=== PATIENT | male | born 1950 | race Caucasian/White ===

== ENCOUNTER → 2017-04-29 | Outpatient (CLI) | payer MEDICARE, BC ==
[~2017-04-29] MED LIST: ASPRIN; BACTRIM DS 8001 TA1 PO; Bactrim Ds 8001 TAB PO; CIPROFLOXACIN500 MG PO; HYDROCO/APAP TAB 5-3; HYDROCODONE BIT1 T11 PO; HYTRIN5 M1 PO; MOTRIN800 MG PO; MULTIPLE VITAMI1 CAP PO; PYRIDIUM200 M1 PO; PYRIDIUM200 MG PO; SEPTRA DS1 TAB PO; SIMVASTATIN40 MG PO; TERAZOSIN HCL5 M1 PO; TERAZOSIN HCL5 MG PO; ZOCOR20 MG PO; ZOCOR40 MG PO
[2017-04-29 10:28] LABS: BASO % 0.4 % (0.0-1.0); EOS # 0.1 10*3/uL (0.0-0.4); HEMATOCRIT 43.1 % (42.0-52.0); HEMOGLOBIN 14.6 g/dl (14.0-18.0); LYMPH # 1.4 10*3/uL (1.3-4.4); LYMPH % 19.7 % (27.0-41.0); MEAN CELL VOLUME 91.5 fl (80.0-94.0); MEAN CORPUSCULAR HGB CONC 33.9 g/dl (33.0-37.0); MONO # 0.7 10*3/uL (0.1-1.0); MONO % 9.8 % (3.0-9.0); NEUT # 4.8 10*3/uL (2.3-7.9); NEUT % 68.8 % (47.0-73.0); PLATELET COUNT AUTOMATED 183 10*3/uL (130-400); RED BLOOD COUNT 4.71 10*6/uL (4.50-5.90); RED CELL DISTRI WIDTH 13.2 % (0-14.5)
== END | disposition home or self-care (01) ==
LOC: LAB 09:55
PROVIDERS: Internal Medicine Interventional Cardiology
DX: I25.10 Atherosclerotic heart disease of native coronary artery without angina pectoris (principal); I10 Essential (primary) hypertension; I25.2 Old myocardial infarction; Z95.5 Presence of coronary angioplasty implant and graft; Z86.74 Personal history of sudden cardiac arrest

== ENCOUNTER 2017-11-29 19:05 | Emergency (ER) | payer MEDICARE, BC ==
[~2017-11-29] VITALS: Ht 177.8 cm; Wt 90.7 kg
--- NOTE | ~2017-11-29 | EKG ---
[place], [place] ELECTROCARDIOGRAM REPORT NAME: ESTHER NAM UNIT #: [id number] ROOM: DOCTOR: DARON CARLSON MD BIRTHDATE: [birth year] DOS: 11/29/2017 TIME: hours. IMPRESSION: 1. Normal sinus rhythm at 92 beats per minute with a couple of premature ventricular contractions. 2. Nonspecific T-wave changes in lateral leads. 3. No previous tracing is available for comparison. DARON CARLSON MD CM:EKGRPT:ELECTROCARDIOGRAM REPORT [id number] 1210 DARON CARLSON MD
[2017-11-29 20:38] LABS: BASO % 0.2 % (0.0-1.0); EOS # 0.1 10*3/uL (0.0-0.4); EOS % 0.3 % (1.0-4.0); HEMATOCRIT 40.3 % (42.0-52.0); HEMOGLOBIN 13.8 g/dl (14.0-18.0); LYMPH # 1.1 10*3/uL (1.3-4.4); LYMPH % 5.3 % (27.0-41.0); MEAN CELL VOLUME 90.2 fl (80.0-94.0); MEAN CORPUSCULAR HGB 30.9 pg (27.0-31.0); MEAN CORPUSCULAR HGB CONC 34.2 g/dl (33.0-37.0); MEAN PLATELET VOLUME 9.9 fl (9.6-12.3); MONO # 1.1 10*3/uL (0.1-1.0); MONO % 5.4 % (3.0-9.0); NEUT # 18.2 10*3/uL (2.3-7.9); NEUT % 88.1 % (47.0-73.0); PLATELET COUNT AUTOMATED 154 10*3/uL (130-400); RED BLOOD COUNT 4.47 10*6/uL (4.50-5.90); RED CELL DISTRI WIDTH 13.4 % (0-14.5); WHITE BLOOD COUNT 20.7 10*3/uL (4.8-10.8)
[2017-11-29 20:56] LABS: ALBUMIN 3.5 gm/dl (3.1-4.5); ALKALINE PHOSPHATASE 77 U/L (45-117); BUN 14 mg/dl (7-24); CHLORIDE 100 mmol/L (98-107); CREATININE 1.19 mg/dL (0.70-1.30); POTASSIUM 3.8 mmol/L (3.5-5.1); SGOT/AST 17 IU/L (3-35); SGPT/ALT 28 U/L (12-78); SODIUM 138 mmol/L (136-145); TOTAL PROTEIN 6.5 gm/dL (6.4-8.2)
[2017-11-29 20:57] LABS: TROPONIN I < 0.015 ng/ml (<0.045)
[2017-11-29 21:40] VITALS: BP 119/70
[2017-11-29 22:55] LABS: BILIRUBIN NEGATIVE (NEGATIVE); BLOOD NEGATIVE (NEGATIVE); CLARITY CLEAR (CLEAR); COLOR YELLOW (YELLOW); GLUCOSE NEGATIVE (NEGATIVE); KETONE NEGATIVE (NEGATIVE); LEUKO ESTERASE NEGATIVE (NEGATIVE); NITRITE NEGATIVE (NEGATIVE); UROBILINOGEN 0.2 E.U./dl (0.2-1.0)
[2017-11-29 23:04] LABS: BACTERIA TRACE; MUCOUS 1+
[2017-11-29] MEDS ORDERED: OMNICEF300 MG PO (23:15)
[2017-11-29] MEDS ORDERED: FLOMAX0.4 MG PO (23:15)
== END 2017-11-29 23:58 | disposition home or self-care (01) ==
LOC: ED 19:05
PROVIDERS: Family Medicine
DX: R50.9 Fever, unspecified (principal); K30 Functional dyspepsia; I49.01 Ventricular fibrillation

== ENCOUNTER → 2018-09-08 | Day surgery (SDC) | payer MEDICARE, BC ==
[~2018-09-08] VITALS: Ht 180.3 cm; Wt 88.5 kg
[~2018-09-08] MED LIST changes: +ASPIRIN ADULT L81 M1 PO; +BRAIN MIGHT-DH1 EACH PO; +EMERGEN-C 500500 MG PO; +FLOMAX0.4 MG PO; +HYDR25T PO; +LIPITOR40 MG PO; +METOPROLOL25 MG PO; +OMEPRAZOLE40 MG PO; +OMNICEF300 MG PO; +SYMB80 PO; +[UNRECOGNIZED DRUG - OTHER] PO
--- NOTE | ~2018-09-08 | O ---
[place], [place] OPERATIVE NOTE NAME: ESTHER NAM UNIT #: [id number] ROOM: DOCTOR: DIPESH AVILA MD BIRTHDATE: [birth year] DOS: 09/08/2018 HISTORY OF PRESENT ILLNESS: This is a 68-year-old patient who presented with history of colonic carcinoma in 2010, undergoing followup evaluation. ALLERGIES: No known medication. PAST MEDICAL HISTORY: Hypertension, hyperlipidemia, coronary artery disease, status post one stent, COPD. PAST SURGICAL HISTORY: Segmental resection of the right colon, total bilateral hip and cataracts. SOCIAL HISTORY: Nonsmoker, nonalcohol consumer. FAMILY HISTORY: Noncontributory. PROCEDURE: Today's procedure part of investigation is colonoscopy. PREMEDICATION: Propofol. SCOPE: Olympus Highlight colonoscope 10L video. REPORT: After putting the patient in left lateral position and application of lubricant to the scope, the scope was introduced; thereafter, under direct visualization, advanced through the length of colon without difficulty. As we approached the right hemicolon, there is status post anastomotic site and previous resection, which appears to be fresh and no evidence of suture infiltration. No evidence of ulceration, no pathology otherwise identified. As I approached the splenic flexure and distal transverse colon, multiple diverticula were identified. Photographed. Air was suctioned out. The patient was gradually extubated, tolerated the procedure well. IMPRESSION PLAN: Status post partial right colon resection with a history of colonic carcinoma in 2010. No chemo, no radiation history otherwise normal colon. Otherwise, diverticulosis. Thank you very much indeed for your kind referral. [place], [place] OPERATIVE NOTE NAME: ESTHER NAM UNIT #: [id number] ROOM: DOCTOR: DIPESH AVILA MD BIRTHDATE: [birth year] DIPESH AVILA MD CM:OPRECORD:OPERATIVE NOTE 1145 1215 DIPESH AVILA MD 09/08/18 1216 interface
[2018-09-08 10:09] VITALS: BP 131/97
[2018-09-08 11:37] VITALS: BP 117/46
[2018-09-08 11:53] VITALS: BP 113/61
[2018-09-08 12:07] VITALS: BP 123/60
== END | disposition home or self-care (01) ==
LOC: SDC 09-05 11:00
DX: Z12.11 Encounter for screening for malignant neoplasm of colon (principal); K57.30 Diverticulosis of large intestine without perforation or abscess without bleeding; I10 Essential (primary) hypertension; I25.2 Old myocardial infarction; I25.10 Atherosclerotic heart disease of native coronary artery without angina pectoris; E78.5 Hyperlipidemia, unspecified; J44.9 Chronic obstructive pulmonary disease, unspecified; K21.9 Gastro-esophageal reflux disease without esophagitis; M19.90 Unspecified osteoarthritis, unspecified site; Z85.038 Personal history of other malignant neoplasm of large intestine; Z98.0 Intestinal bypass and anastomosis status; Z87.891 Personal history of nicotine dependence; Z96.643 Presence of artificial hip joint, bilateral; Z98.890 Other specified postprocedural states; Z79.899 Other long term (current) drug therapy; Z87.11 Personal history of peptic ulcer disease; Z98.42 Cataract extraction status, left eye; Z98.41 Cataract extraction status, right eye
CPT/HCPCS: 00812; G0105

== ENCOUNTER → 2019-04-30 | Outpatient (CLI) | payer MEDICARE, BC | END | disposition home or self-care (01) | LOC: RAD 10:39 | DX: M25.572 Pain in left ankle and joints of left foot (principal) ==

== ENCOUNTER → 2019-09-27 | Outpatient (CLI) | payer MEDICARE, BC ==
[2019-09-27 09:45] LABS: BASO % 0.6 % (0.0-1.0); EOS # 0.1 10*3/uL (0.0-0.4); EOS % 1.9 % (1.0-4.0); HEMATOCRIT 40.5 % (42.0-52.0); HEMOGLOBIN 13.4 g/dl (14.0-18.0); LYMPH # 1.5 10*3/uL (1.3-4.4); LYMPH % 24.6 % (27.0-41.0); MEAN CORPUSCULAR HGB 31.1 pg (27.0-31.0); MEAN CORPUSCULAR HGB CONC 33.1 g/dl (33.0-37.0); MEAN PLATELET VOLUME 10.1 fl (9.6-12.3); MONO # 0.6 10*3/uL (0.1-1.0); MONO % 9.2 % (3.0-9.0); NEUT # 3.9 10*3/uL (2.3-7.9); NEUT % 63.2 % (47.0-73.0); PLATELET COUNT AUTOMATED 197 10*3/uL (130-400); RED BLOOD COUNT 4.31 10*6/uL (4.50-5.90); RED CELL DISTRI WIDTH 13.9 % (0-14.5); WHITE BLOOD COUNT 6.2 10*3/uL (4.8-10.8)
[2019-09-27 10:13] LABS: BUN 15 mg/dl (7-24); CHLORIDE 101 mmol/L (98-107); CREATININE 1.19 mg/dL (0.70-1.30); POTASSIUM 3.6 mmol/L (3.5-5.1); SODIUM 138 mmol/L (136-145); URIC ACID 4.6 mg/dL (3.5-7.2)
== END | disposition home or self-care (01) ==
LOC: LAB 08:52
PROVIDERS: Internal Medicine
DX: M10.9 Gout, unspecified (principal)

== ENCOUNTER → 2019-10-30 | Outpatient (CLI) | payer MEDICARE, BC | END | disposition home or self-care (01) | LOC: RAD 11:01 | DX: R06.02 Shortness of breath (principal); R05 Cough ==

== ENCOUNTER → 2020-07-03 | Outpatient (CLI) | payer MEDICARE, BC | END | disposition home or self-care (01) | LOC: RAD 11:29 | PROVIDERS: ATTEND Internal Medicine | DX: R05 Cough (principal) ==

== ENCOUNTER → 2020-07-10 | Outpatient (CLI) | payer MEDICARE, BC | END | disposition home or self-care (01) | LOC: CARD 12:33 | PROVIDERS: ATTEND Internal Medicine | DX: I35.1 Nonrheumatic aortic (valve) insufficiency (principal); I35.8 Other nonrheumatic aortic valve disorders; I05.8 Other rheumatic mitral valve diseases ==

== ENCOUNTER 2020-09-04 16:22 | Inpatient (IN) | payer MEDICARE, BC ==
[~2020-09-04] VITALS: Ht 177.8 cm; Wt 90.0 kg
[2020-09-04 10:35] VITALS: BP 127/61
[2020-09-04 16:22] VITALS: BP 146/74
[2020-09-04 17:11] LABS: BASO % 0.1 % (0.0-1.0); EOS % 0.1 % (1.0-4.0); HEMATOCRIT 36.3 % (42.0-52.0); LYMPH # 0.5 10*3/uL (1.3-4.4); LYMPH % 6.4 % (27.0-41.0); MEAN CELL VOLUME 89.2 fl (80.0-94.0); MEAN CORPUSCULAR HGB 29.5 pg (27.0-31.0); MEAN CORPUSCULAR HGB CONC 33.1 g/dl (33.0-37.0); MEAN PLATELET VOLUME 9.2 fl (9.6-12.3); MONO # 0.7 10*3/uL (0.1-1.0); MONO % 8.5 % (3.0-9.0); NEUT # 6.9 10*3/uL (2.3-7.9); NEUT % 84.3 % (47.0-73.0); PLATELET COUNT AUTOMATED 278 10*3/uL (130-400); RED BLOOD COUNT 4.07 10*6/uL (4.50-5.90); RED CELL DISTRI WIDTH 12.9 % (0-14.5); WHITE BLOOD COUNT 8.2 10*3/uL (4.8-10.8)
[2020-09-04 17:24] LABS: ACT PARTIAL THROMBO TIME 28.8 SECONDS (20.0-32.1)
[2020-09-04 17:29] LABS: ALBUMIN 2.6 gm/dl (3.1-4.5); ALKALINE PHOSPHATASE 233 U/L (45-117); BUN 15 mg/dl (7-24); CHLORIDE 101 mmol/L (98-107); CPK 45 U/L (39-308); LDH 284 U/L (87-241); POTASSIUM 3.3 mmol/L (3.5-5.1); SGOT/AST 158 IU/L (3-35); SGPT/ALT 271 U/L (12-78); SODIUM 139 mmol/L (136-145)
[2020-09-04 17:35] LABS: TROPONIN I < 0.015 ng/ml (<0.045)
[2020-09-04 20:00] VITALS: BP 133/78
--- NOTE | 2020-09-04 20:05 | NUR ---
SPOKE WITH THE PATIENTS DAUGHTER AND EXPLAINED THE PATIENT WOULD BE STAYING IN THE ER TONIGHT I DID EXPLAIN I WOULD PLACE HIM IN A HOSPITAL BED FOR COMFORT SHE WAS WORRIED ABOUT HIS BEING UNCOMFORTABLE. ADALBERTO CARRENO RN.
[2020-09-04 23:56] VITALS: BP 129/62
--- NOTE | 2020-09-05 06:30 | NUR ---
PT AWAKE ALERT SITTING AT BEDSIDE STATES HAS HEADACHE ASKING FOR TYLENOL. PT MEDICATED WTIH 650 MG OF TYLENOL. ADALBERTO CARRENO RN.
[2020-09-05 06:45] VITALS: BP 144/84
--- NOTE | 2020-09-05 07:05 | NUR ---
NURSE REPORT RECEIVEDE FOR CONTINUATION OF CARE. NO VOICED COMPLAINTS. NO CHANGE IN CONDITION. VITALS STABLE.
[2020-09-05 07:33] LABS: BASO % 0.2 % (0.0-1.0); EOS # 0.1 10*3/uL (0.0-0.4); EOS % 0.9 % (1.0-4.0); HEMATOCRIT 37.5 % (42.0-52.0); LYMPH # 0.6 10*3/uL (1.3-4.4); LYMPH % 6.8 % (27.0-41.0); MEAN CELL VOLUME 92.1 fl (80.0-94.0); MEAN CORPUSCULAR HGB 29.7 pg (27.0-31.0); MEAN CORPUSCULAR HGB CONC 32.3 g/dl (33.0-37.0); MEAN PLATELET VOLUME 9.4 fl (9.6-12.3); MONO # 0.6 10*3/uL (0.1-1.0); MONO % 6.6 % (3.0-9.0); NEUT # 7.7 10*3/uL (2.3-7.9); NEUT % 84.7 % (47.0-73.0); PLATELET COUNT AUTOMATED 281 10*3/uL (130-400); RED BLOOD COUNT 4.07 10*6/uL (4.50-5.90); RED CELL DISTRI WIDTH 13.2 % (0-14.5); WHITE BLOOD COUNT 9.1 10*3/uL (4.8-10.8)
[2020-09-05 07:44] LABS: ALBUMIN 2.6 gm/dl (3.1-4.5); BUN 17 mg/dl (7-24); CHLORIDE 100 mmol/L (98-107); CREATININE 1.06 mg/dL (0.70-1.30); LDH 254 U/L (87-241); POTASSIUM 3.7 mmol/L (3.5-5.1); SGOT/AST 95 IU/L (3-35); SGPT/ALT 222 U/L (12-78); SODIUM 138 mmol/L (136-145); TOTAL PROTEIN 6.9 gm/dL (6.4-8.2)
[2020-09-05 07:45] LABS: ALKALINE PHOSPHATASE 218 U/L (45-117); CPK 44 U/L (39-308)
[2020-09-05 07:57] VITALS: BP 136/77
--- NOTE | 2020-09-05 10:02 | NUR ---
[employer] CALLED ABOUT NO FOOD TRAY DELIVERY YET. PT PROVIDED BOXED LUNCH, JUICE AND MILK
[2020-09-05 10:29] LABS: ARTERIAL BLOOD GAS PH 7.463 (7.35-7.45)
--- NOTE | 2020-09-05 10:30 | NUR ---
CALL PLACED TO DR. BUSTAMANTE NOTIFIED OF CONSULT.
[2020-09-05] MEDS ORDERED: LASIX40 MG PO (11:10)
[2020-09-05] MEDS ORDERED: ALLOPURINOL300 MG PO (11:13)
[2020-09-05 13:30] VITALS: BP 122/67
--- NOTE | 2020-09-05 13:34 | NUR ---
MEAL TRAY FOR LUNCH PROVIDED, PT DENIES ANY OTGHER NEEDS AT THIS TIME. VITALS STABLE. DINNER TRAY ORDERED. SITTING UP WATCHING TV.
--- NOTE | 2020-09-05 13:45 | NUR ---
MULTIPLE JUICES, BREWSTER, CUPS AND MYRA DENISE'S PROVIDED PER REQUEST.
--- NOTE | 2020-09-05 14:50 | NUR ---
Pt arrived to floor from ER. Place in [facility] isolation.
[2020-09-05 16:00] VITALS: BP 150/52
[2020-09-05 20:00] VITALS: BP 136/69
[2020-09-06] VITALS: BP 151/71
[2020-09-06 06:37] LABS: BASO % 0.2 % (0.0-1.0); EOS % 0.1 % (1.0-4.0); HEMATOCRIT 37.4 % (42.0-52.0); LYMPH # 0.8 10*3/uL (1.3-4.4); LYMPH % 9.6 % (27.0-41.0); MEAN CELL VOLUME 90.6 fl (80.0-94.0); MEAN CORPUSCULAR HGB 29.3 pg (27.0-31.0); MEAN CORPUSCULAR HGB CONC 32.4 g/dl (33.0-37.0); MEAN PLATELET VOLUME 9.4 fl (9.6-12.3); MONO # 0.5 10*3/uL (0.1-1.0); NEUT # 7.1 10*3/uL (2.3-7.9); NEUT % 83.7 % (47.0-73.0); PLATELET COUNT AUTOMATED 344 10*3/uL (130-400); RED BLOOD COUNT 4.13 10*6/uL (4.50-5.90); RED CELL DISTRI WIDTH 12.9 % (0-14.5); WHITE BLOOD COUNT 8.5 10*3/uL (4.8-10.8)
[2020-09-06 06:58] LABS: ALBUMIN 2.6 gm/dl (3.1-4.5); BUN 15 mg/dl (7-24); CHLORIDE 101 mmol/L (98-107); CREATININE 0.88 mg/dL (0.70-1.30); LDH 224 U/L (87-241); POTASSIUM 3.8 mmol/L (3.5-5.1); SGOT/AST 77 IU/L (3-35); SGPT/ALT 206 U/L (12-78); SODIUM 138 mmol/L (136-145); TOTAL PROTEIN 6.8 gm/dL (6.4-8.2)
[2020-09-06 06:59] LABS: ALKALINE PHOSPHATASE 200 U/L (45-117); CPK 45 U/L (39-308)
[2020-09-06 08:00] VITALS: BP 145/60
[2020-09-06 09:24] LABS: ABG BASE EXCESS 5.1 mmol/L (-2.0-2.0); ARTERIAL BLOOD GAS PH 7.495 (7.35-7.45)
[2020-09-06 12:00] VITALS: BP 136/92
[2020-09-06 16:00] VITALS: BP 127/88
[2020-09-06 20:00] VITALS: BP 142/63
--- NOTE | 2020-09-06 21:11 | NUR ---
ASSUMED CARE OF PATIENT. PATIENT IS AAOX3 RESTING IN BED WITH EASY AND REGULAR RESPERS ON 2L O2 VIA NC. ASSESSMENT IS COMPLETE WITH NO C/O OR S/S OF DISTRESS NOTED AT THIS TIME. BED IS LOW, LOCKED, AND CALL LIGHT IS WITHIN REACH. WILL CONTINUE TO MONITOR, SEE INTERVENTIONS.
[2020-09-07] VITALS: BP 134/71
--- NOTE | 2020-09-07 02:58 | NUR ---
CHART CHECK COMPLETE.
[2020-09-07 06:38] LABS: BASO % 0.1 % (0.0-1.0); HEMATOCRIT 36.4 % (42.0-52.0); LYMPH # 0.9 10*3/uL (1.3-4.4); LYMPH % 10.1 % (27.0-41.0); MEAN CELL VOLUME 90.1 fl (80.0-94.0); MEAN CORPUSCULAR HGB 29.7 pg (27.0-31.0); MEAN PLATELET VOLUME 9.4 fl (9.6-12.3); MONO # 0.5 10*3/uL (0.1-1.0); MONO % 6.1 % (3.0-9.0); NEUT % 82.9 % (47.0-73.0); PLATELET COUNT AUTOMATED 357 10*3/uL (130-400); RED BLOOD COUNT 4.04 10*6/uL (4.50-5.90); RED CELL DISTRI WIDTH 12.8 % (0-14.5); WHITE BLOOD COUNT 8.5 10*3/uL (4.8-10.8)
[2020-09-07 07:00] LABS: ALBUMIN 2.7 gm/dl (3.1-4.5); ALKALINE PHOSPHATASE 174 U/L (45-117); BUN 17 mg/dl (7-24); CHLORIDE 104 mmol/L (98-107); CPK 36 U/L (39-308); LDH 203 U/L (87-241); POTASSIUM 3.7 mmol/L (3.5-5.1); SGOT/AST 65 IU/L (3-35); SGPT/ALT 197 U/L (12-78); SODIUM 140 mmol/L (136-145); TOTAL PROTEIN 6.7 gm/dL (6.4-8.2)
[2020-09-07 08:00] VITALS: BP 135/63
[2020-09-07 08:17] LABS: ABG BASE EXCESS 3.8 mmol/L (-2.0-2.0); ARTERIAL BLOOD GAS PH 7.476 (7.35-7.45)
--- NOTE | 2020-09-07 08:50 | NUR ---
PATIENT AWAKE, ALERT, & ORIENTED X3. PATIENT STATES THAT HE FEELS MUCH BETTER. EATING BREAKFAST AT THIS TIME. MEDICATIONS TAKEN. PT'S LUNGS DIMINISHED T/O. ON 2L NC, SOB W/ EXERTION. ABD SOFT & NONTENDER. DENIES NVD.HEPLOCK PATENT AND INTACT TO L AC. CALL LIGHT IS WITHIN REACH.
[2020-09-07 12:00] VITALS: BP 112/76
[2020-09-07 15:13] VITALS: BP 132/62
--- NOTE | 2020-09-07 19:20 | NUR ---
RECIEVED REPORT FROM PREVIOUS RN.
--- NOTE | 2020-09-07 19:22 | NUR ---
CHART CHECK COMPLETE.
[2020-09-07 20:00] VITALS: BP 129/85
--- NOTE | 2020-09-07 20:59 | NUR ---
ASSUMED CARE OF PATIENT. PATIENT IS AAOX3 RESTING IN BED WITH EASY AND REGULAR RESPERS ON 2L O2 VIA NC. ASSESSMENT IS COMPLETE WITH NO S/S OF DISTRESS NOTED AT THIS TIME. PATIENT C/O DRY MOUTH AND SORE THROAT. CALL PLACED TO DR. BAEZ, SEE NEW ORDERS. IV ABX INFUSING PER ORDER. BED IS LOW, LOCKED, AND CALL LIGHT IS WITHIN REACH. WILL CONTINUE TO MONITOR. SEE INTERVENTIONS.
[2020-09-08] VITALS: BP 122/51
--- NOTE | 2020-09-08 01:52 | NUR ---
PATIENT APPEARS TO BE SLEEPING WITH EASY AND REGULAR RESPERS ON 2L O2 VIA NC. BED IS LOW, LOCKED, AND CALL LIGHT IS WITHIN REACH. WILL CONTINUE TO MONITOR.
--- NOTE | 2020-09-08 05:00 | NUR ---
PATIENT AWAKENED EASILY FOR ADMINISTRATION OF 0600 MEDICATIONS. NO NEEDS VOICED AT THIS TIME. CALL LIGHT IS WITHIN REACH.
--- NOTE | 2020-09-08 05:19 | NUR ---
PATIENT IS AMBULATORY AROUND ROOM AT THIS TIME. GAIT STEADY. WILL CONTINUE TO MONITOR.
[2020-09-08 05:41] LABS: ALBUMIN 2.6 gm/dl (3.1-4.5); ALKALINE PHOSPHATASE 160 U/L (45-117); BUN 16 mg/dl (7-24); CHLORIDE 103 mmol/L (98-107); CPK 33 U/L (39-308); CREATININE 0.95 mg/dL (0.70-1.30); LDH 192 U/L (87-241); POTASSIUM 3.7 mmol/L (3.5-5.1); SGOT/AST 66 IU/L (3-35); SGPT/ALT 200 U/L (12-78); SODIUM 139 mmol/L (136-145); TOTAL PROTEIN 6.3 gm/dL (6.4-8.2)
[2020-09-08 06:25] LABS: BASO % 0.1 % (0.0-1.0); HEMATOCRIT 36.6 % (42.0-52.0); LYMPH % 10.3 % (27.0-41.0); MEAN CELL VOLUME 91.5 fl (80.0-94.0); MEAN CORPUSCULAR HGB 29.5 pg (27.0-31.0); MEAN CORPUSCULAR HGB CONC 32.2 g/dl (33.0-37.0); MEAN PLATELET VOLUME 9.5 fl (9.6-12.3); MONO # 0.6 10*3/uL (0.1-1.0); MONO % 6.8 % (3.0-9.0); NEUT # 7.6 10*3/uL (2.3-7.9); PLATELET COUNT AUTOMATED 354 10*3/uL (130-400); RED CELL DISTRI WIDTH 12.9 % (0-14.5); WHITE BLOOD COUNT 9.3 10*3/uL (4.8-10.8)
--- NOTE | 2020-09-08 09:00 | NUR ---
Merchandise Deliverer in to talk to patient. Patient states lives at home with . There are no steps in the home. Physician: hero Pharmacy: [facility] health services: none Patient's level of ADLs: INDEPENDENT Patient has working utilities: all working DME: [employer] Follow-up physician's appointment after d/c: will be made by hospitalist nurse director upon discharge Does patient want to access PORTAL?: no Discharge plan discussed with patient, he lives at home with , he is independent in adls and ambulation, he will return home when discharged and denies any home needs, case management will follow. KANDY SINGLETON
[2020-09-08 09:22] LABS: ABG BASE EXCESS 5.1 mmol/L (-2.0-2.0); ARTERIAL BLOOD GAS PH 7.493 (7.35-7.45)
[2020-09-08 12:00] VITALS: BP 135/69
--- NOTE | 2020-09-08 12:19 | NUR ---
PT AWAKE ALERT AND ORIENTED, NO COMPLAINTS AT THIS TIME
--- NOTE | 2020-09-08 12:39 | NUR ---
PT EVAL. FOR HOME O2. PT WAS 88% AT REST ON ROOM AIR AND DROPPED TO 85-86% DURING AMBULATION. 2L APPLIED AND MAINTAINED SATS >92%. PT JASON. WELL. RN AWARE. PT NOW AT REST POST AMBULATION ON 2L IS 96%.
[2020-09-08] MEDS ORDERED: DECADRON6 M1 PO (12:52)
[2020-09-08] MEDS ORDERED: DOXYCYCLINE100 M3 PO (12:53)
--- NOTE | 2020-09-08 13:10 | NUR ---
case management received script for home oxygen, contacted [facility], spoke to Adriana, educated her that patient is a discharge to home today and will need portable tanks delivered. Adriana stated they will deliver the portable tanks prior to discharge
--- NOTE | 2020-09-08 16:41 | NUR ---
Discharge instructions reviewed with patient/family. Patient receptive and verbalizes understanding. Follow-up care arranged. Written instructions given to patient/family. USHA HO
== END 2020-09-08 16:41 | disposition home or self-care (01) | DRG 177 ==
LOC: ED 16:22 → 4E 18:07 → EDHOLD 18:07 → 4E 09-05 14:17
PROVIDERS: Emergency Medicine; Family Medicine; Internal Medicine; Internal Medicine Critical Care Medicine; ADMIT Internal Medicine; ATTEND Internal Medicine
DX: U07.1 COVID-19 (principal); J12.89 Other viral pneumonia; J96.01 Acute respiratory failure with hypoxia; E43 Unspecified severe protein-calorie malnutrition; D68.59 Other primary thrombophilia; Z80.42 Family history of malignant neoplasm of prostate; D64.9 Anemia, unspecified; E87.6 Hypokalemia; E83.41 Hypermagnesemia; R73.9 Hyperglycemia, unspecified; E78.5 Hyperlipidemia, unspecified; R74.01 Elevation of levels of liver transaminase levels; K21.9 Gastro-esophageal reflux disease without esophagitis; N40.0 Benign prostatic hyperplasia without lower urinary tract symptoms; E87.5 Hyperkalemia; I25.10 Atherosclerotic heart disease of native coronary artery without angina pectoris; M1A.9XX0 Chronic gout, unspecified, without tophus (tophi); I10 Essential (primary) hypertension; Z96.643 Presence of artificial hip joint, bilateral; Z90.49 Acquired absence of other specified parts of digestive tract; Z83.3 Family history of diabetes mellitus; Z82.49 Family history of ischemic heart disease and other diseases of the circulatory system; Z79.82 Long term (current) use of aspirin; Z79.899 Other long term (current) drug therapy

== ENCOUNTER → 2021-04-22 | Outpatient (CLI) | payer MEDICARE, BC ==
[~2021-04-22] MED LIST changes: +ALLOPURINOL300 MG PO; +DECADRON6 M1 PO; +DOXYCYCLINE100 M3 PO; +LASIX40 MG PO
== END | disposition home or self-care (01) ==
LOC: LAB 11:03
PROVIDERS: ATTEND Internal Medicine
DX: Z12.5 Encounter for screening for malignant neoplasm of prostate (principal); D52.9 Folate deficiency anemia, unspecified; D51.9 Vitamin B12 deficiency anemia, unspecified; R70.0 Elevated erythrocyte sedimentation rate; R79.82 Elevated C-reactive protein (CRP); R74.8 Abnormal levels of other serum enzymes; R79.89 Other specified abnormal findings of blood chemistry; R53.81 Other malaise; E55.9 Vitamin D deficiency, unspecified; E03.9 Hypothyroidism, unspecified; Z13.0 Encounter for screening for diseases of the blood and blood-forming organs and certain disorders involving the immune mechanism; Z13.1 Encounter for screening for diabetes mellitus; Z13.21 Encounter for screening for nutritional disorder; Z13.220 Encounter for screening for lipoid disorders

== ENCOUNTER → 2021-08-24 | Outpatient (CLI) | payer MEDICARE, BC | END | disposition home or self-care (01) | LOC: CT 00:09 | PROVIDERS: ATTEND Internal Medicine | DX: N39.0 Urinary tract infection, site not specified (principal); R31.9 Hematuria, unspecified; R10.9 Unspecified abdominal pain; I25.10 Atherosclerotic heart disease of native coronary artery without angina pectoris; K42.9 Umbilical hernia without obstruction or gangrene; J92.9 Pleural plaque without asbestos; Z90.49 Acquired absence of other specified parts of digestive tract ==

== ENCOUNTER → 2021-10-30 | Outpatient (CLI) | payer MEDICARE, BC ==
[~2021-10-30] MED LIST changes: +SINGULAIR10 M1 PO
== END | disposition home or self-care (01) ==
LOC: CARD 04:14
PROVIDERS: ATTEND Internal Medicine Cardiovascular Disease
DX: I51.0 Cardiac septal defect, acquired (principal)

== ENCOUNTER → 2022-03-25 | Outpatient (CLI) | payer MEDICARE, BC ==
[2022-03-25 10:41] LABS: BUN 15 mg/dl (7-24); CHLORIDE 103 mmol/L (98-107); CREATININE 1.07 mg/dL (0.70-1.30); POTASSIUM 3.9 mmol/L (3.5-5.1); SODIUM 139 mmol/L (136-145)
== END | disposition home or self-care (01) ==
LOC: LAB 09:23
PROVIDERS: ATTEND Internal Medicine
DX: R79.89 Other specified abnormal findings of blood chemistry (principal); Z13.0 Encounter for screening for diseases of the blood and blood-forming organs and certain disorders involving the immune mechanism; Z13.228 Encounter for screening for other metabolic disorders; Z13.29 Encounter for screening for other suspected endocrine disorder; Z13.6 Encounter for screening for cardiovascular disorders; Z13.89 Encounter for screening for other disorder; Z13.9 Encounter for screening, unspecified

== ENCOUNTER → 2022-09-30 | Outpatient (CLI) | payer MEDICARE, BC | END | disposition short-term general hospital (02) | LOC: RAD 10:13 | PROVIDERS: ATTEND Internal Medicine | DX: J90 Pleural effusion, not elsewhere classified (principal); J61 Pneumoconiosis due to asbestos and other mineral fibers ==

== ENCOUNTER → 2022-11-24 | Outpatient (CLI) | payer MEDICARE, BC | END | disposition home or self-care (01) | LOC: CARD 02:07 | PROVIDERS: ATTEND Internal Medicine Cardiovascular Disease | DX: I35.1 Nonrheumatic aortic (valve) insufficiency (principal); I49.8 Other specified cardiac arrhythmias; R06.09 Other forms of dyspnea ==

== ENCOUNTER → 2023-11-01 | Outpatient (CLI) | payer MEDICARE, BC ==
[~2023-11-01] MED LIST changes: +Ipratropium Brom3 ML INH; +LEVOFLOXACIN500 MG PO; +WIXELA 100-501 EACH INH
== END | disposition home or self-care (01) ==
LOC: RAD 14:10
PROVIDERS: ATTEND Internal Medicine
DX: R09.02 Hypoxemia (principal)

== ENCOUNTER → 2023-11-23 | Outpatient (CLI) | payer MEDICARE, BC | END | disposition home or self-care (01) | LOC: US 01:18 | PROVIDERS: ATTEND Internal Medicine | DX: R60.9 Edema, unspecified (principal); M79.604 Pain in right leg; M79.605 Pain in left leg ==

== ENCOUNTER → 2024-06-18 | Outpatient (CLI) | payer MEDICARE, BC | END | disposition home or self-care (01) | LOC: RAD 10:04 | PROVIDERS: ATTEND Internal Medicine | DX: J90 Pleural effusion, not elsewhere classified (principal) ==

== ENCOUNTER 2024-07-30 13:33 | Emergency (ER) | payer MEDICARE, BC ==
[~2024-07-30] VITALS: Ht 177.8 cm; Wt 95.7 kg
[2024-07-30 14:05] LABS: BASO % 0.6 % (0.0-1.0); EOS # 0.2 10*3/uL (0.0-0.4); EOS % 2.3 % (1.0-4.0); HEMATOCRIT 38.5 % (42.0-52.0); LYMPH # 1.2 10*3/uL (1.3-4.4); LYMPH % 17.4 % (27.0-41.0); MEAN CELL VOLUME 94.4 fl (80.0-94.0); MEAN CORPUSCULAR HGB 31.1 pg (27.0-31.0); MONO # 0.6 10*3/uL (0.1-1.0); MONO % 8.3 % (3.0-9.0); NEUT # 4.9 10*3/uL (2.3-7.9); NEUT % 71.1 % (47.0-73.0); PLATELET COUNT AUTOMATED 178 10*3/uL (130-400); RED BLOOD COUNT 4.08 10*6/uL (4.50-5.90); RED CELL DISTRI WIDTH 13.1 % (0-14.5); WHITE BLOOD COUNT 6.8 10*3/uL (4.8-10.8)
[2024-07-30 14:23] VITALS: BP 120/93
[2024-07-30 14:24] LABS: ACT PARTIAL THROMBO TIME 26.5 SECONDS (20.0-32.1)
[2024-07-30 14:30] LABS: ALKALINE PHOSPHATASE 97 U/L (46-116); BUN 12 mg/dl (9-23); CHLORIDE 101 mmol/L (98-107); POTASSIUM 3.3 mmol/L (3.4-5.1); SGPT/ALT 16 U/L (5-49); TOTAL PROTEIN 6.5 gm/dL (6.0-8.0)
== END 2024-07-30 17:28 | disposition home or self-care (01) ==
LOC: ED 13:33
PROVIDERS: Internal Medicine
DX: R07.2 Precordial pain (principal); I10 Essential (primary) hypertension; E78.00 Pure hypercholesterolemia, unspecified; Z53.29 Procedure and treatment not carried out because of patient's decision for other reasons; Z98.890 Other specified postprocedural states

== ENCOUNTER → 2024-08-10 | Outpatient (CLI) | payer MEDICARE, BC ==
[~2024-08-10] MED LIST changes: +Albuterol Sulf/Ipratropium 3 ML VIAL NEB SCH; +Regadenoson 0.4 MG/5 ML SYR IV ONE; +Technetium Tc 99M Tetrofosmi 0.23 MG KIT IJ SCH
== END | disposition home or self-care (01) ==
LOC: CARD 01:13
PROVIDERS: ATTEND Internal Medicine
DX: R94.39 Abnormal result of other cardiovascular function study (principal); I25.10 Atherosclerotic heart disease of native coronary artery without angina pectoris; R07.2 Precordial pain

== ENCOUNTER → 2024-08-20 | Outpatient (CLI) | payer MEDICARE, BC ==
[~2024-08-20] MED LIST changes: -Albuterol Sulf/Ipratropium 3 ML VIAL NEB SCH; -Regadenoson 0.4 MG/5 ML SYR IV ONE; -Technetium Tc 99M Tetrofosmi 0.23 MG KIT IJ SCH
[2024-08-20 12:01] LABS: BASO % 0.4 % (0.0-1.0); EOS # 0.2 10*3/uL (0.0-0.4); EOS % 3.1 % (1.0-4.0); HEMATOCRIT 40.2 % (42.0-52.0); LYMPH # 1.5 10*3/uL (1.3-4.4); LYMPH % 19.4 % (27.0-41.0); MEAN CELL VOLUME 93.3 fl (80.0-94.0); MEAN CORPUSCULAR HGB 31.3 pg (27.0-31.0); MEAN CORPUSCULAR HGB CONC 33.6 g/dl (33.0-37.0); MEAN PLATELET VOLUME 9.2 fl (9.6-12.3); MONO # 0.6 10*3/uL (0.1-1.0); MONO % 7.2 % (3.0-9.0); NEUT # 5.4 10*3/uL (2.3-7.9); NEUT % 69.5 % (47.0-73.0); PLATELET COUNT AUTOMATED 197 10*3/uL (130-400); RED BLOOD COUNT 4.31 10*6/uL (4.50-5.90); RED CELL DISTRI WIDTH 13.2 % (0-14.5); WHITE BLOOD COUNT 7.7 10*3/uL (4.8-10.8)
[2024-08-20 12:13] LABS: ACT PARTIAL THROMBO TIME 26.8 SECONDS (20.0-32.1)
[2024-08-20 12:43] LABS: ALKALINE PHOSPHATASE 106 U/L (46-116); BUN 14 mg/dl (9-23); CHLORIDE 103 mmol/L (98-107); POTASSIUM 3.6 mmol/L (3.4-5.1); SGPT/ALT 17 U/L (5-49); TOTAL PROTEIN 6.8 gm/dL (6.0-8.0)
== END | disposition home or self-care (01) ==
LOC: LAB 11:35
PROVIDERS: ATTEND Internal Medicine Cardiovascular Disease
DX: I99.8 Other disorder of circulatory system (principal); I50.9 Heart failure, unspecified

== ENCOUNTER → 2024-11-26 | Outpatient (CLI) | payer MEDICARE, BC | END | disposition home or self-care (01) | LOC: LAB 12:06 | PROVIDERS: ATTEND Urology | DX: R97.20 Elevated prostate specific antigen [PSA] (principal) ==

== ENCOUNTER → 2025-06-13 | Outpatient (CLI) | payer MEDICARE, BC ==
[~2025-06-13] MED LIST changes: +ALLOPURINOL100 MG PO; -ALLOPURINOL300 MG PO; +ALPHAGAN P 10 M10 M1 OPH; +BREZTRI AEROS10.7 GM INH; +LATANOPROST2.5 ML OP; +PREDNISONE5 MG PO; +Vibra-Tab100 MG PO
== END | disposition home or self-care (01) ==
LOC: LAB 01:20
PROVIDERS: ATTEND Urology
DX: R97.20 Elevated prostate specific antigen [PSA] (principal)